=== PATIENT | male | born 1945 | race Caucasian/White ===

== ENCOUNTER 2020-06-08 10:10 | Day surgery (SDC) | payer MEDICARE, SELFPAY ==
[2020-06-08 10:54] VITALS: BP 114/73; PULSE 84; RESP 16; TEMP 36.6; O2SAT 96
[2020-06-08] MEDS: Tropicam./Phenyleph. (1/2.5%) 5 ML BTL OS ×3 (11:09→11:19)
[2020-06-08] MEDS: Tetracaine 0.5% 4 ML BTL OS (12:19)
[2020-06-08] MEDS: Lidocaine 2% Jelly 6 ML SYR (12:20)
[2020-06-08] MEDS: Povidone-Iodine Ophth 30 ML BTL (12:20)
[2020-06-08] MEDS: Lidocaine 1% Pres-Free 5 ML VIAL (12:27)
[2020-06-08] MEDS: Balanced Salt Soln.-PLUS 500 ML BAG (12:30)
[2020-06-08] MEDS: Duovisc Viscoelastic System EACH 1 EACH (12:31)
--- NOTE | 2020-06-08 13:06 | PDOC.DSDIS_ITS ---
Discharge Plan Disposition Patient Disposition: HOME Condition: Good Discharge Details Attending Provider: Emkea Lopez Primary Care Provider: Tereso Coulter Home Meds and New Rx's Prescriptions: No Action prednisone 10 mg Tablet 10 mg PO DIRECTED RF: 0 atorvastatin 10 mg Tablet 10 mg PO DAILY RF: 0 oxycodone-acetaminophen [Percocet] 5-325 mg Tablet 1 tab PO BID PRNRF: 0 clonidine HCl 0.2 mg Tablet 0.2 mg PO BID RF: 0 albuterol sulfate [Ventolin HFA] 90 mcg/actuation Hfa Aerosol Inhaler 2 puff INHALATION Q4H PRNRF: 0 clotrimazole [Clotrimazole AF] 1 % Cream 1 applic TOPICAL BID RF: 0 sertraline 50 mg Tablet 20 mg PO DAILY RF: 0 Flovent 110 mcg/actuation Hfa Aerosol Inhaler 2 puff INHALATION BID RF: 0 duloxetine 60 mg Capsule,Delayed Release(Dr/Ec) 60 mg PO DAILY RF: 0 hydrochlorothiazide 12.5 mg Tablet 12.5 mg PO DAILY RF: 0 omeprazole 20 mg Tablet,Delayed Release (Dr/Ec) 20 mg PO DAILY RF: 0 Myrbetriq 25 mg Tablet Extended Release 24 Hr 25 mg PO DAILY RF: 0 Narcan 4 mg/actuation [place],Non-Aerosol 1 spray INTRANASAL PRN PRNRF: 0 Trelegy Ellipta 100-62.5-25 mcg Blister With Device 1 ea INHALATION DAILY RF: 0 Discharge Instructions Stand Alone Forms: Post-op Topical Cataract, Keven Rayaey (DSU) Discharge Orders Discharge Orders: Discharge Order (Routine); Ordered 06/08/20 Ordered By: Emeka Lopez DS: Diagnosis Discharge Diagnosis (1) Cortical cataract of left eye: Status: Resolved (2) Nuclear sclerotic cataract of left eye: Status: Resolved
--- NOTE | 2020-06-08 13:07 | ROE_ITS ---
Date of service: 06/08/20 Time of Service: 13:07 Operative Note Operative Note DATE OF PROCEDURE: 06/08/20 PRE-OP DIAGNOSIS: Nuclear/cortical cataract, left eye Poorly dilating pupil, left eye POST-OP DIAGNOSIS: same PROCEDURE: Cataract extraction by phacoemulsification with intraocular lens implantation, left eye, with pupillary expansion device SURGEON: Emeka Lopez ANESTHESIA: MAC and local (sub-tenon's anesthetic infiltration) ESTIMATED BLOOD LOSS: 0 PATHOLOGY: none sent COMPLICATIONS: None Patient was transported to: same day Patient's condition: stable Implants: Raji and Raji / [employer] Tecnis [id number] Indications: Progressive decreased vision, left eye Procedure Description: CATARACT SURGERY OPERATIVE REPORT PREOPERATIVE DIAGNOSIS: 1. Nuclear/cortical cataract, left eye 2. Poorly dilating pupil, left eye POSTOPERATIVE DIAGNOSIS: Same OPERATION: 1. Cataract extraction using phacoemulsification with posterior chamber intraocular lens implant, left eye. 2. Pupillary dilation and iris stabilization using Malyugin Ring IOL; IOL Registered Diet Technician/Model: Raji & Raji / RAYMUNDO Tecnis [id number] IOL Power: + 20.5 diopters IOL Serial Number: [id number] Optic Diameter: 6.0 mm Haptic/Overall Diameter: 13.00 mm PHACO INFO: Bryson [employer]ion Vision System with OZil and Active Fluidics Cumulative Dispersed Energy (CDE): 24.74 seconds SURGEON: Emeka Lopez MD, DONNA ANESTHESIA: Monitored Anesthesia Care (MAC), with local sub-tenon's anesthetic infiltration COMPLICATIONS: None SPECIMENS: None INDICATIONS FOR PROCEDURE: The patient is a 75-year-old gentleman with 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 The option of cataract surgery was offered to the patient and he wished to proceed. Preoperatively, a long discussion was undertaken regarding the limitations of regaining central vision postoperatively due to his advanced geographic atrophy. However, he wished to proceed. PROCEDURE: The correct surgical eye was identified and marked as the left eye and the pupil was dilated in the preoperative area using mydriatics, cycloplegics, and NSAIDS (except in aspirin allergic patients). The dilated pupil size was 5.0 mm. Oral sedation was administered in the form of an Imprimis MKO Melt (midazolam 3mg/ketamine 25mg/ondansetron 2mg). The patient was brought to the operating room where cardiopulmonary monitoring was instituted and surgical time-out was performed, confirming the correct operative eye and IOL power. Topical anesthesia was administered and ophthalmic povidone-iodine 5% was instilled into the conjunctival fornices. Lidocaine gel was applied to the cornea and the tiara-ocular area was prepped with Betadine 10% solution and draped in the usual sterile fashion for intraocular surgery, including an aperture drape. A Tegaderm transparent film dressing was cut in half and used to cover the lashes and lid margins. Care was taken to sequester the lashes and lid margins under the Tegaderm dressing. A lid speculum was placed between the lids of the operative eye and the Christopher-Sheree operating microscope was maneuvered into position. Sheyla scissors were then used to make a conjunctival buttonhole approximately 6mm posterior to the limbus in the inferonasal quadrant. Blunt dissection was carried out to expose bare sclera, and a blunt-tipped sub-tenon?s anesthesia cannula was introduced and passed posteriorly along the globe where non- preserved plain lidocaine was injected into posterior sub-Tenon?s space. A sideport knife was used to make a paracentesis port superiorly/superiortemporally. Intraocular phenylephrine/lidocaine was injected into the anterior chamber. The anterior chamber was then filled with viscoelastic. A 2.4mm keratome knife was used to create a half-thickness groove at the limbus and then to construct a three-plane near-clear corneal tunnel extending 2.0mm into clear cornea at the temporal position. A 7.0 mm Malyugin Ring was then inserted into the pupillary space and engaged with the Kuglen hook. A flap was raised on the anterior capsule and capsulorhexis forceps were used to complete a continuous curvilinear capsulorhexis of 5.5 mm. Significant zonular laxity was noted. Balanced salt solution was then used to perform cortical cleaving hydrodissection and nuclear hydrodelineation until the lens could be freely rota chandu within the capsular bag. The lens nucleus was then disassembled and removed within the capsular bag and iris plane using phacoemulsification. Residual cortical material was removed using the 45-degree angled silicone I/A tip with 0.3mm port. The posterior capsule was carefully polished to remove as much residual lens epithelial cells as safely possible. The capsular bag was then inflated and the anterior chamber deepened with viscoelastic. The lens implant described above was inserted into the capsular bag using the RAYMUNDO [employer] Injector. A Kuglen hook was used to dial the IOL into position. The Malyugin Ring was removed in the reverse order of its insertion. Residual viscoelastic was then removed first from posterior to the IOL, then from the anterior chamber using the I/A handpiece. The lens implant was noted to center nicely within the capsular bag. The incisions were stromally hydrated, and the anterior chamber was reformed using BSS. Then 0.5cc of moxifloxacin 1.0mg/ml were injected into the capsular bag and anterior chamber. The incisions were checked with a Weck spear and found to be secure. Several drops of ophthalmic povidone-iodine 5% were then applied to the eye followed by two drops of Imprimis combination prednisolone/moxifloxacin/nepafenac solution. The drapes were removed and a clear plastic protective eye shield was placed over the eye. The patient was then returned to [facility] Surgery in stable condition.
== END 2020-06-08 13:15 | disposition home or self-care (01) ==
PROVIDERS: PCP Internal Medicine; Visit Provider Ophthalmology
PROC: (CPT 66982; principal; 2020-06-08 13:30)
DX: H25.012 Cortical age-related cataract, left eye (principal); H25.12 Age-related nuclear cataract, left eye; H57.09 Other anomalies of pupillary function; K21.9 Gastro-esophageal reflux disease without esophagitis; J44.9 Chronic obstructive pulmonary disease, unspecified
CPT/HCPCS: 66982; V2632

== ENCOUNTER 2020-06-22 10:10 | Day surgery (SDC) | payer MEDICARE, SELFPAY ==
[2020-06-22 10:50] VITALS: BP 140/74; PULSE 72; RESP 18; TEMP 36.6; O2SAT 96
[2020-06-22] MEDS: Tropicam./Phenyleph. (1/2.5%) 5 ML BTL OD ×3 (10:56→11:07)
[2020-06-22] MEDS: Tetracaine 0.5% 4 ML BTL OD (12:22)
[2020-06-22] MEDS: Lidocaine 1% Pres-Free 5 ML VIAL (12:23)
[2020-06-22] MEDS: Balanced Salt Soln.-PLUS 500 ML BAG (12:24)
[2020-06-22] MEDS: Lidocaine 2% Jelly 6 ML SYR (12:25)
[2020-06-22] MEDS: Povidone-Iodine Ophth 30 ML BTL (12:25)
[2020-06-22] MEDS: Duovisc Viscoelastic System EACH 1 EACH (12:25)
--- NOTE | 2020-06-22 12:59 | W.PM.DSUDISC ---
Discharge Plan Disposition Patient Disposition: HOME Condition: Good Discharge Details Attending Provider: Emeka Lopez Primary Care Provider: Tereso Coulter Home Meds and New Rx's Prescriptions: No Action atorvastatin 10 mg Tablet 10 mg PO DAILY RF: 0 oxycodone-acetaminophen [Percocet] 5-325 mg Tablet 1 tab PO BID PRNRF: 0 clonidine HCl 0.2 mg Tablet 0.2 mg PO BID RF: 0 albuterol sulfate [Ventolin HFA] 90 mcg/actuation Hfa Aerosol Inhaler 2 puff INHALATION Q4H PRNRF: 0 sertraline 50 mg Tablet 20 mg PO DAILY RF: 0 Flovent 110 mcg/actuation Hfa Aerosol Inhaler 2 puff INHALATION BID RF: 0 duloxetine 60 mg Capsule,Delayed Release(Dr/Ec) 60 mg PO DAILY RF: 0 hydrochlorothiazide 12.5 mg Tablet 12.5 mg PO DAILY RF: 0 omeprazole 20 mg Tablet,Delayed Release (Dr/Ec) 20 mg PO DAILY RF: 0 Myrbetriq 25 mg Tablet Extended Release 24 Hr 25 mg PO DAILY RF: 0 Narcan 4 mg/actuation [place],Non-Aerosol 1 spray INTRANASAL PRN PRNRF: 0 Trelegy Ellipta 100-62.5-25 mcg Blister With Device 1 ea INHALATION DAILY RF: 0 Discharge Instructions Stand Alone Forms: Post-op Topical Cataract, Keven Winter (DSU) Discharge Orders Discharge Orders: Discharge Order (Routine); Ordered 06/22/20 Ordered By: Emeka Lopez DS: Diagnosis Discharge Diagnosis (1) Combined form of age-related cataract, right eye: Status: Resolved
--- NOTE | 2020-06-22 13:00 | W.PM.OP ---
Date of service: 06/22/20 Time of Service: 13:00 Operative Note Operative Note DATE OF PROCEDURE: 06/22/20 PRE-OP DIAGNOSIS: Dense nuclear cataract, right eye Poorly dilating pupil, right eye Advanced atrophic macular degeneration, right eye POST-OP DIAGNOSIS: same PROCEDURE: 1. Cataract extraction by phacoemulsification with intraocular lens implantation, right eye, with pupillary expansion device SURGEON: Emeka Lopez ANESTHESIA: MAC (with local sub-tenon's anesthetic injection) PATHOLOGY: none sent COMPLICATIONS: None Patient was transported to: same day Patient's condition: stable Implants: Raji and Raji / [employer] Tecnis [id number] Indications: Progressive decreased vision due to cataract, right eye, with poorly dilating pupil Procedure Description: CATARACT SURGERY OPERATIVE REPORT PREOPERATIVE DIAGNOSIS: 1. Dense nuclear cataract, right eye 2. Poorly dilating pupil, right eye POSTOPERATIVE DIAGNOSIS: Same OPERATION: 1. Cataract extraction using phacoemulsification with posterior chamber intraocular lens implant, right eye. 2. Pupillary dilation and iris stabilization using Malyugin Ring IOL: IOL Behavioral Health Therapist/Model: Raji & Raji / RAYMUNDO Tecnis [id number] IOL Power: + 20.50 diopters IOL Serial Number: [id number] Optic Diameter: 6.0mm Haptic/Overall Diameter: 13.0mm PHACO INFO: [employer] Vision System with OZil and Active Fluidics Cumulative Dispersed Energy (CDE): 20.63 seconds SURGEON: Emeka Lopez MD, DONNA ANESTHESIA: Monitored Anesthesia Care (MAC), with local sub-tenon's anesthetic infiltration COMPLICATIONS: None SPECIMENS: None INDICATIONS FOR PROCEDURE: The patient is a 75-year-old gentleman with history of advanced atrophic macular degeneration who has developed dense bilateral nuclear cataract. He is significantly symptomatic and he desires cataract surgery attempt to improve and maximize his vision, although he understands that postoperative visual acuity will be limited by the presence of his pre-existing maculopathy. He has already undergone cataract surgery in his left eye and has noticed some improvement. He now presents for cataract surgery in the right eye. PROCEDURE: The correct surgical eye was identified and marked as the right eye and the pupil was dilated in the preoperative area using mydriatics and cycloplegics. The dilated pupil size was 4.5 mm. The patient elected to proceed without oral sedation. The patient was brought to the operating room where cardiopulmonary monitoring was instituted and surgical time-out was performed, confirming the correct operative eye and IOL power. Topical anesthesia was administered and ophthalmic povidone-iodine 5% was instilled into the conjunctival fornices. Lidocaine gel was applied to the cornea and the tiara-ocular area was prepped with Betadine 10% solution and draped in the usual sterile fashion for intraocular surgery, including an aperture drape. A Tegaderm transparent film dressing was cut in half and used to cover the lashes and lid margins. Care was taken to sequester the lashes and lid margins under the Tegaderm dressing. A lid speculum was placed between the lids of the operative eye and the Christopher-Sheree operating microscope was maneuvered into position. Sheyla scissors were then used to make a conjunctival buttonhole approximately 6mm posterior to the limbus in the inferonasal quadrant. Blunt dissection was carried out to expose bare sclera, and a blunt-tipped sub-tenon?s anesthesia cannula was introduced and passed posteriorly along the globe where non-preserved plain lidocaine was injected into posterior sub-Tenon?s space. A sideport knife was used to make a paracentesis port inferiortemporally. Intraocular phenylephrine/lidocaine was injected in the anterior chamber. The anterior chamber was filled with viscoelastic. A 2.4mm keratome knife was used to create a half-thickness groove at the limbus and then to construct a three-plane near-clear corneal tunnel extending 2.0mm into clear cornea superiortemporally. A 7.0 mm Malyugin Ring was then inserted into the pupillary space and engaged with the Kuglen hook. A flap was raised on the anterior capsule and capsulorhexis forceps were used to complete a continuous curvilinear capsulorhexis of 5.0 mm. The capsule was noted to be quite thin with moderate zonular laxity. Balanced salt solution was then used to perform cortical cleaving hydrodissection and nuclear hydrodelineation until the lens could be freely rotated within the capsular bag. The lens nucleus was then disassembled and removed within the capsular bag and iris plane using phacoemulsification. Residual cortical material was removed using the 45-degree angled silicone I/A tip with 0.3mm port. The posterior capsule was carefully polished to remove as much residual lens epithelial cells as safely possible. The posterior capsule was noted to be extremely thin. The capsular bag was then inflated and the anterior chamber deepened with viscoelastic. The lens implant described above was inserted into the capsular bag using the RAYMUNDO [employer] Injector. A Kuglen hook was used to dial the IOL into position. The Malyugin Ring was removed in the reverse order of its insertion. Residual viscoelastic was then removed first from posterior to the IOL, then from the anterior chamber using the I/A handpiece. The lens implant was noted to center nicely within the capsular bag. The incisions were stromally hydrated, and the anterior chamber was reformed using BSS. Then 0.5cc of moxifloxacin 1.0mg/ml were injected into the capsular bag and anterior chamber. The incisions were checked with a Weck spear and found to be secure. Several drops of ophthalmic povidone-iodine 5% were then applied to the eye followed by two drops of Imprimis combination prednisolone/moxifloxacin/nepafenac solution. The drapes were removed and a clear plastic protective eye shield was placed over the eye. The patient was then returned to Same Day Surgery in stable condition.
== END 2020-06-22 13:10 | disposition home or self-care (01) ==
PROVIDERS: PCP Internal Medicine; Visit Provider Ophthalmology
PROC: (CPT 66982; principal; 2020-06-22 07:30)
DX: H25.11 Age-related nuclear cataract, right eye (principal); H57.09 Other anomalies of pupillary function; H35.3113 Nonexudative age-related macular degeneration, right eye, advanced atrophic without subfoveal involvement
CPT/HCPCS: 66982; V2632